=== PATIENT | female | born 1950 | race Caucasian/White ===

== ENCOUNTER 2017-04-13 15:59 | Emergency (ER) | payer MEDICARE, OTHER ==
--- NOTE | 2017-04-13 17:23 | UC ---
Head Injury HPI - HPI Summary HPI Summary: fell and hit head on a chair at 2pm today-no loc. Drinks Alcohol everyday--- patient reports no LOC - History Of Current Complaint Chief Complaint: UCLaceration Stated Complaint: HEAD LACERATION Time Seen by Provider: 04/13/17 17:13 Hx Obtained From: Patient ?: No Mechanism Of Injury: fell and hit head on a chair Onset/Duration: Sudden Onset, Lasting Hours, Still Present Severity Currently: Mild Severity Initially: Mild Aggravating Factor(s): Nothing Alleviating Factor(s): Nothing Associated Signs And Symptoms: Positive: Negative - Allergies/Home Medications Allergies/Adverse Reactions: Allergies Allergy/AdvReac Type Severity Reaction Status Date / Time Aspirin Allergy Agitation Verified 04/13/17 16:24 Penicillins Allergy Shortness Verified 04/13/17 16:19 of Breath Home Medications: Home Medications Cyanocobalamin TAB* [Vitamin B12 TAB*] 1,000 mcg PO DAILY 04/13/17 [History Confirmed 04/13/17] Levothyroxine TAB* [Synthroid TAB*] 175 mcg PO 04/13/17 [History Confirmed 04/13] Lisinopril TAB* [Prinivil TAB*] 10 mg PO DAILY 04/13/17 [History Confirmed 04/13] Magnesium Oxide TAB* [MagOx 400 TAB*] 400 mg PO DAILY 04/13/17 [History Confirmed 04/13/17] PMH/Surg Hx/FS Hx/Imm Hx Previously Healthy: No Endocrine History: Hypothyroidism Cardiovascular History: Hypertension - Surgical History Surgical History: Yes Surgery Procedure, Year, and Place: tracheotomy 1970 tubeligation - Family History Known Family History: Positive: None - Social History Occupation: Disabled Lives: With Family Alcohol Use: Daily Alcohol Amount: 3-4 beers/ day Substance Use Type: Marijuana Smoking Status (MU): Heavy Every Day Tobacco Smoker Amount Used/How Often: 1/2 PPD - Immunization History Hx Tetanus, Diphtheria Vaccination: Yes Vaccination Up to Date: Yes Review of Systems Constitutional: Negative Skin: Negative, Other - laceration on back of head Eyes: Negative ENT: Negative Respiratory: Negative Cardiovascular: Negative Gastrointestinal: Negative Genitourinary: Negative Motor: Negative Neurovascular: Negative Musculoskeletal: Negative Neurological: Negative Psychological: Negative Is Patient Immunocompromised?: No All Other Systems Reviewed And Are Negative: Yes Physical Exam Triage Information Reviewed: Yes Appearance: Well-Appearing, No Pain Distress, Well-Nourished Vital Signs: Initial Vital Signs Temp 98.3 F 04/13/17 16:24 Pulse 78 04/13/17 16:24 Resp 16 04/13/17 16:24 BP 144/82 04/13/17 16:24 Pulse Ox 99 04/13/17 16:24 Vital Signs Reviewed: Yes Eye Exam: Normal Eyes: Positive: Conjunctiva Clear ENT Exam: Normal ENT: Positive: Normal ENT inspection, Hearing grossly normal. Negative: Nasal congestion, Tonsillar swelling, Hoarse voice, Dental tenderness, Sinus tenderness Dental Exam: Normal Neck exam: Normal Neck: Positive: Supple, Nontender, No Lymphadenopathy Respiratory Exam: Normal Respiratory: Positive: Chest non-tender, Lungs clear, Normal breath sounds, No respiratory distress, No accessory muscle use Cardiovascular Exam: Normal Cardiovascular: Positive: RRR, No Murmur, Pulses Normal, Brisk Capillary Refill Musculoskeletal Exam: Normal Musculoskeletal: Positive: Strength Intact, ROM Intact, No Edema Neurological Exam: Normal Neurological: Positive: Alert, Muscle Tone Normal Psychological Exam: Normal Skin Exam: Normal Skin: Positive: Other - 4 cm laceration on back of head head Procedures - Laceration/Wound Repair 1 Location: head Description: Linear Length, Depth and Shape: 4 cm linear Betadine Prep?: Yes Irrigated w/ Saline (ccs): 250 Laceration/Wound Explored: clean, no foreign body removed Closure: Nieves #__ - 5 Re-Evaluation - Re-Evaluation First Eval Change: Improved - well approximated patient tolerated well Head Injury Course/Dx - Course Course Of Treatment: gentle soap and water wash, observe for s/s f head injury re-check blood pressure with pcp, ice and tylenol for pain-return in 10-12 days for staple removal - Differential Dx/Diagnosis Provider Diagnoses: laceration to scalp, head injury, hypertension in poor control Discharge - Discharge Plan Condition: Stable Disposition: HOME Patient Education Materials: Head Injury (ED), Hypertension (ED), Staple Care ( ED), Ice Pack Application (ED) Referrals: Andre Rodriguez DO [Primary Care Provider] - 2 Weeks Additional Instructions: Please return in 10-12 days for staple removal
[2017-04-13] MEDS ORDERED: Lidocaine/Epineph/Tetraca SOL* (LET solution) 4 ML BTL TOPICAL ONE ×2 (17:34→17:49)
[2017-04-13] MEDS ORDERED: Lidocaine/Epineph/Tetraca SOL* (LET solution) 4 ML BTL ONE (17:36)
--- NOTE | 2017-04-13 18:07 | RAD ---
Indication: Fall, head injury. CT of the brain was performed without IV contrast. Ventricular structures are midline. No midline shift is noted. The extra-axial spaces are unremarkable. There is no evidence of intracranial mass or hemorrhage. No other high or low density lesions are identified. Mastoid air cells and paranasal sinuses are otherwise unremarkable. When compared to previous exam October 10, 2005 no significant change is noted. IMPRESSION: No intracranial mass or hemorrhage is noted.
[2017-04-13 18:32] VITALS: BP 151/105
== END 2017-04-13 18:32 | disposition home or self-care (01) ==
LOC: UCEAST 15:59
DX: S01.01XA Laceration without foreign body of scalp, initial encounter (principal); S09.90XA Unspecified injury of head, initial encounter; W18.09XA Striking against other object with subsequent fall, initial encounter; Y93.9 Activity, unspecified; Y92.9 Unspecified place or not applicable; I10 Essential (primary) hypertension; E03.9 Hypothyroidism, unspecified; Z88.6 Allergy status to analgesic agent; Z88.0 Allergy status to penicillin; F12.90 Cannabis use, unspecified, uncomplicated; F17.210 Nicotine dependence, cigarettes, uncomplicated
CPT/HCPCS: 12002; 70450; 99212; G0463